=== PATIENT | female | born 1985 | race African-American/Black ===

== ENCOUNTER 2019-11-12 23:30 | Emergency (ER) | payer MEDICARE, MEDICAID ==
[~2019-11-12] VITALS: Ht 170.2 cm; Wt 70.0 kg
[2019-11-13] MEDS ORDERED: IBUPROFEN 400MG TABLET PO ONE (00:45)
[2019-11-13 03:41] VITALS: BP 147/74
== END 2019-11-13 03:42 | disposition home or self-care (01) ==
LOC: ER 23:30
DX: M79.671 Pain in right foot (principal); M25.571 Pain in right ankle and joints of right foot; J45.909 Unspecified asthma, uncomplicated; E11.9 Type 2 diabetes mellitus without complications; I10 Essential (primary) hypertension; Z98.890 Other specified postprocedural states
CPT/HCPCS: 73610; 73630; 99283